=== PATIENT | female | born 1925 | race Caucasian/White ===

== ENCOUNTER 2016-04-18 06:20 | Emergency (ER) | payer MEDICARE, OTHER ==
[~2016-04-18] VITALS: Ht 160 cm; Wt 70.0 kg
[~2016-04-18 06:20] MED LIST: CELE100C PO; DONE5TAB14 PO; LISI-363 PO; OMPR20CCR PO; ONDA1TAB16 PO; PREV30CA36 PO; SERT100 PO
--- NOTE | 2016-04-18 06:45 | PD ---
HPI Chief Complaint: Fall Time Seen by Provider: 06:43 Travel History International Travel<30 days: No Contact w/Intl Traveler<30days: No Traveled to known affect area: No History of Present Illness HPI 89-year-old female presents to the emergency department by EMS transport from [facility] after a slip and fall this morning. Patient reports that she did hit her forehead. She doesn't think that she lost consciousness. Patient sustained contusion. Patient reports also hit her left elbow. Patient denies any extremity pain and has full range of motion of the left lower extremity. Patient denies other injury. Patient states she did not have loss of consciousness. Patient denies any chest pain shortness of breath abdominal pain back pain pelvic pain or other extremity pain. PFSH Past Medical History Narrative Medical Dementia arthritis anxiety depression breast cancer dyslipidemia aortic regurgitation fibromyalgia recurrent urinary tract infections lumbar stenosis occasional wine no tobacco use hypertension Alzheimer's Disease: Yes Arthritis: Yes Blood Disorders: No Anxiety: Yes Depression: Yes Heart Rhythm Problems: Yes Cancer: No Cardiovascular Problems: Yes (AORTIC REGURGITATION) High Cholesterol: Yes Dementia: Yes Diminished Hearing: Yes Endocrine: No Fibromyalgia: Yes Gastrointestinal Disorders: Yes GERD: Yes Genitourinary: Yes (URINARY INCONTINENCE) Hypertension: Yes Immune Disorder: No Musculoskeletal: Yes (FIBROMYALGIA; LUMBAR SPINAL STENOSIS) Neurologic: No Psychiatric: Yes Respiratory: No Immunizations Current: Yes Menopausal: Yes Dilation and Curettage (D&C): Yes Past Surgical History Gynecologic Surgery: Yes (D&C'S) Other Surgery: Yes (TOOTH EXTRACTION) Social History Alcohol Use: Yes (OCCASIONALLY WINE ) Tobacco Use: No Substance Use: No Allergies-Medications (Allergen,Severity, Reaction): Coded Allergies: Aspirin (Verified Allergy, Severe, ABDOMINAL PAAIN/NAUSEA, 04/18/16) Sulfa (Verified Allergy, Severe, BLEEDING, 04/18/16) Reported Meds & Prescriptions Reported Meds & Active Scripts Active Reported Ativan (Lorazepam) 1 Mg Tab 1 Mg PO Q6HR PRN Buspirone (Buspirone HCl) 10 Mg Tab 10 Mg PO TID Memantine 10 Mg Tab 10 Mg PO BID Sertraline (Sertraline HCl) 100 Mg Tab 50 Mg PO DAILY Melatonin 5 Mg Tab 5 Mg PO HS Lisinopril 2.5 Mg Tab 2.5 Mg PO DAILY Hydrocodone-Acetaminophen 10-325 mg Tab 1 Tab PO HS PRN Hydrocodone-Acetaminophen 5-325 mg Tab 1 Tab PO Q4H PRN Donepezil 10 Mg Tab 10 Mg PO DAILY Ditropan XL 24 HR (Oxybutynin Chloride) 5 Mg Tab 5 Mg PO DAILY Vitamin D (Cholecalciferol) 1,000 Unit Tab 500 Units PO DAILY Review of Systems ROS Limitations: Clinical Condition, Poor Historian General / Constitutional: No: Fever HENT: Positive: Headaches, Neck Pain Cardiovascular: No: Chest Pain or Discomfort Respiratory: No: Shortness of Breath Gastrointestinal: No: Abdominal Pain Genitourinary: No: Flank Pain Musculoskeletal: Positive: Pain (left elbow) Neurologic: Positive: Headache Physical Exam Narrative GENERAL: Well-developed elderly female in no acute distress no respiratory distress awake and oriented to person and events and location. SKIN: Warm and dry. HEAD: Atraumatic. Normocephalic. Right forehead contusion with abrasion subacute left forehead contusion with abrasion no palpable scalp soft tissue swelling hematoma laceration or bony abnormalities. EYES: Pupils equal and round. Extraocular muscles intact. No scleral icterus. No injection or drainage. ENT: No nasal bleeding or discharge. Mucous membranes pink and moist. Airway is patent. No hemotympanum bilaterally. NECK: Trachea midline. No JVD. No bony tenderness to palpation along the cervical spine but does note tenderness to palpation along the left paracervical musculature. Cervical collar applied CARDIOVASCULAR: Regular rate and rhythm. RESPIRATORY: No accessory muscle use. Clear to auscultation. Breath sounds equal bilaterally. GASTROINTESTINAL: Abdomen soft, non-tender, nondistended. Hepatic and splenic margins not palpable. MUSCULOSKELETAL: Extremities without clubbing, cyanosis, or edema. No obvious deformities. Multiple various aged ecchymosis over the bilateral upper extremities attention to left elbow forearm positive intact ecchymotic area patient demonstrates full range of motion with flexion extension and pronation supination farm supervisor strength 5 over 5 capillary refill brisk less than 2 seconds per digit radial pulse 2+ to palpation no deformity noted. NEUROLOGICAL: Awake and alert. No obvious cranial nerve deficits. Motor grossly within normal limits. Five out of 5 muscle strength in the arms and legs. Normal speech. PSYCHIATRIC: Appropriate mood and affect; insight and judgment normal. Data Data Last Documented VS Vital Signs Date Time Temp Pulse Resp B/P Pulse Ox O2 Delivery O2 Flow Rate FiO2 04/18/16 08:16 59 18 180/72 99 Room Air 04/18/16 08:[address] Brain W/O Iv Contrast(Rout) (04/18/16 ) Ct Cerv Spine W/O Contrast (04/18/16 ) Apply Cervical Collar (04/18/16 06:43) MDM Medical Decision Making Medical Screen Exam Complete: Yes Emergency Medical Condition: Yes Medical Record Reviewed: Yes Differential Diagnosis Mechanical fall, minor CHI, ICH, skull fracture, cervical spine sprain strain fracture cord compression, contusions Narrative Course Patient with recent fall and head contusion patient aware that she had a trip and fall and hit her head does not believe she had loss of consciousness and complains of neck pain cervical collar applied no other focality on exam identified patient is not sure if she takes any blood thinning agents. CT brain noncontrast and CT cervical spine noncontrast imaging studies ordered. At 8:25 AM patient's care signed over to oncoming physician for follow-up of pending imaging studies and patient disposition Medical record review identifies patient was seen for fall with minor head injury 04/14/16 CT brain noncontrast at that time was found to reveal no acute abnormality. Corrina Byrd MD Apr 18, 2016 06:45
[2016-04-18 08:11] VITALS: BP 181/77; PULSE 65; RESP 20; TEMP 97.8; O2SAT 100
[2016-04-18 08:16] VITALS: BP 180/72; PULSE 59; RESP 18; O2SAT 99
--- NOTE | 2016-04-18 08:42 | RADRPT ---
EXAM DATE/TIME: 04/18/2016 08:20 [facility] COMPARISON: CT BRAIN W/O CONTRAST, October 18, 2010, 20:56. CT BRAIN W/O CONTRAST, April 14, 2016, 21:12. INDICATIONS : Trauma. Fell and hit head. RADIATION DOSE: 56.35 CTDIvol (mGy) MEDICAL HISTORY : Hypertension. SURGICAL HISTORY : None. ENCOUNTER: Initial ACUITY: 1 day PAIN SCALE: 4/10 LOCATION: cranial TECHNIQUE: Multiple contiguous axial images were obtained of the head. Using automated exposure control and adj ustment of the mA and/or kV according to patient size, radiation dose was kept as low as reasonably a chievable to obtain optimal diagnostic quality images. FINDINGS: CEREBRUM: The ventricles are normal for age. No evidence of midline shift, mass lesion, hemorrhage or acute in farction. No extra-axial fluid collections are seen. POSTERIOR FOSSA: The cerebellum and brainstem are intact. The 4th ventricle is midline. The cerebellopontine angle i s unremarkable. EXTRACRANIAL: The visualized portion of the orbits is intact. SKULL: The calvaria is intact. No evidence of skull fracture. There is a small area of swelling along the r ight frontal region. CONCLUSION: 1. No acute intracranial abnormality is identified. The exam is stable compared to previous dated . Mart Yeager MD on April 18, 2016 at 8:38 Board Certified Radiologist. This report was verified electronically.
[2016-04-18] MEDS ORDERED: HYDR-3516 PO (09:03)
[2016-04-18] MEDS ORDERED: SERT-129 PO (09:03)
[2016-04-18] MEDS ORDERED: MELA5TAB15 PO (09:03)
[2016-04-18] MEDS ORDERED: OXYBXL5 PO (09:03)
[2016-04-18] MEDS ORDERED: HYDR-3583 PO (09:03)
[2016-04-18] MEDS ORDERED: MEMA1TAB2 PO (09:03)
[2016-04-18] MEDS ORDERED: DONE10TA7 PO (09:03)
[2016-04-18] MEDS ORDERED: LISI2.5T3 PO (09:03)
[2016-04-18] MEDS ORDERED: BUSP10TA PO (09:03)
[2016-04-18] MEDS ORDERED: VITA100064 PO (09:03)
[2016-04-18] MEDS ORDERED: LORA-474 PO (09:03)
--- NOTE | 2016-04-18 09:10 | RADRPT ---
EXAM DATE/TIME: 04/18/2016 08:20 [facility] COMPARISON: No previous studies available for comparison. INDICATIONS : Trauma. Fell and hit head. RADIATION DOSE: 33.07 CTDIvol (mGy) MEDICAL HISTORY : Hypertension. SURGICAL HISTORY : None. ENCOUNTER: Initial ACUITY: 1 day PAIN SCALE: 2/10 LOCATION: neck TECHNIQUE: Volumetric scanning of the cervical spine was performed. Multiplanar reconstructions in the sagittal, coronal and oblique axial planes were performed. Using automated exposure control and adjustment o f the mA and/or kV according to patient size, radiation dose was kept as low as reasonably achievable to obtain optimal diagnostic quality images. FINDINGS: There is no fracture or spondylolisthesis. No prevertebral soft tissue swelling. Moderate to severe d egenerative disc disease present at C5-6. No significant canal stenosis. CONCLUSION: 1. No acute findings. 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 Facet arthropathy. Michael Smart MD on April 18, 2016 at 9:02 Board Certified Radiologist. This report was verified electronically.
[2016-04-18 10:49] VITALS: BP 198/93; PULSE 72; RESP 20; O2SAT 96
--- NOTE | 2016-04-18 10:57 | PD ---
Data Data Last Documented VS Vital Signs Date Time Temp Pulse Resp B/P Pulse Ox O2 Delivery O2 Flow Rate FiO2 04/18/16 10:49 72 20 198/93 96 Room Air 04/18/16 08:[address] Brain W/O Iv Contrast(Rout) (04/18/16 ) Ct Cerv Spine W/O Contrast (04/18/16 ) Apply Cervical Collar (04/18/16 06:43) Collar [place] (04/18/16 ) MDM Supervised Visit with LAUREEN: No Narrative Course This case is checked out to me by Dr. Byrd. She is a demented half-way patient that had a fall with head injury. Brain CT is negative. Cervical spine CT is negative for trauma. Patient will be sent back to the half-way to follow-up with half-way physician. Diagnosis Primary Impression: Head injury due to trauma Qualified Code: S09.90XA - Head injury due to trauma, initial encounter Additional Impression: Dementia Qualified Code: G30.9 - Alzheimer's dementia without behavioral disturbance, unspecified timing of dementia onset Additional Instruction: Follow-up with half-way Sriram Disposition: 03 DISCHARGE TO SNF Condition: Stable Diego Rivera MD Apr 18, 2016 10:57
== END 2016-04-18 12:52 ==
LOC: NEPC 06:20
DX: S00.93XA Contusion of unspecified part of head, initial encounter (principal); G30.9 Alzheimer's disease, unspecified; F02.80 Dementia in other diseases classified elsewhere, unspecified severity, without behavioral disturbance, psychotic disturbance, mood disturbance, and anxiety; W01.0XXA Fall on same level from slipping, tripping and stumbling without subsequent striking against object, initial encounter; Y92.129 Unspecified place in nursing home as the place of occurrence of the external cause
CPT/HCPCS: 70450; 72125; 99285; L0150

== ENCOUNTER 2017-10-04 18:15 | Emergency (ER) | payer MEDICARE, OTHER ==
[~2017-10-04] VITALS: Ht 160 cm; Wt 70.0 kg
[~2017-10-04 18:15] MED LIST changes: +BUSP10TA PO; -CELE100C PO; +DONE10TA7 PO; -DONE5TAB14 PO; +HYDR-3516 PO; +HYDR-3583 PO; -LISI-363 PO; +LISI2.5T3 PO; +LORA-474 PO; +MELA5 PO; +MEMA1TAB2 PO; -OMPR20CCR PO; -ONDA1TAB16 PO; +OXYBXL5 PO; -PREV30CA36 PO; +SERT-129 PO; -SERT100 PO; +VITA100064 PO
[2017-10-04 18:19] VITALS: BP 198/118; PULSE 87; RESP 16; TEMP 97.7; O2SAT 92; O2SAT 97
--- NOTE | 2017-10-04 18:32 | PD ---
Physical Exam Date Seen by Provider: Oct 04, 2017 Narrative This is a demented patient who lives in a retirement who presents to us for the evaluation of a left hip injury. She had a fall just prior to presentation. Her left leg is shortened. Data Data Last Documented VS Vital Signs Date Time Temp Pulse Resp B/P (MAP) Pulse Ox O2 Delivery O2 Flow Rate FiO2 10/04/17 18:22 77 16 92 Nasal Cannula 2.00 10/04/17 18:19 97.7 198/118 (144) Orders Orders Electrocardiogram (10/04/17 18:23) Complete Blood Count With Diff (10/04/17 18:23) Comprehensive Metabolic Panel (10/04/17 18:23) Prothrombin Time / Inr (Pt) (10/04/17 18:23) Act Partial Throm Time (Ptt) (10/04/17 18:23) Urinalysis - C+S If Indicated (10/04/17 18:23) Magnesium (Mg) (10/04/17 18:23) Chest, Single Ap (10/04/17 18:23) Ct Brain W/O Iv Contrast(Rout) (10/04/17 18:23) Iv Access Insert/Monitor (10/04/17 18:23) Hip, Uni(Ap&Lat) W Ap Pelvis (10/04/17 ) Femur (Ap & Lat/2vws) (10/04/17 ) MDM Supervised Visit with LAUREEN: Yes Narrative Course I, Dr. Mckeon, have reviewed the advance practice practitioner's documentation and am in agreement, met with the patient face to face, made the diagnosis, and the medical decision making was done by me. *My assessment and Findings: She has a probable left hip fracture. See Leah Lopez note for a more detailed H&P, final diagnosis and disposition Lisa Mckeon MD Oct 04, 2017 18:32
[2017-10-04 19:00] VITALS: BP 189/114; PULSE 88; RESP 16; O2SAT 96
[2017-10-04] MEDS ORDERED: HYDROmorphone HCL PF 1 MG/ML VIAL IV PUSH ONE (19:00)
--- NOTE | 2017-10-04 19:08 | PD ---
HPI Chief Complaint: Fall Time Seen by Provider: 18:18 Travel History International Travel<30 days: No Contact w/Intl Traveler<30days: No Traveled to known affect area: No History of Present Illness HPI 89-year-old female that presents to the ED for evaluation of fall. Patient had a fall today at an [facility]. Patient is somewhat of a poor historian and she has a history of dementia. Per [facility] report patient apparently had a fall today. She is alert and oriented to person and place but not to time. She apparently fell and did hit her head and had a injury to her left hip. She has obvious shortening on the left hip. She is been complaining of severe pain to the left hip. She does have a history of what appears to be breast cancer on the right breast per ED nurse report and apparently she also is a DNR patient and currently on hospice. Has multiple allergies to different medications. Denies any chest pain or shortness of breath. No arm pain. She chronically takes morphine and patient was given 10 mg of morphine IV on the way here per Dr. Mckeon orders to [facility]. No open sores per [facility]. Pain apparently still 10 out of 10. Only on the left hip. She does have shortening. History is limited because of the patient's mental status. No family or hospice at bedside. PFSH Past Medical History Alzheimer's Disease: Yes Arthritis: Yes Blood Disorders: No Anxiety: Yes Depression: Yes Heart Rhythm Problems: Yes Cancer: No Cardiovascular Problems: Yes High Cholesterol: Yes Dementia: Yes Diabetes: No Diminished Hearing: Yes Endocrine: No Fibromyalgia: Yes Gastrointestinal Disorders: Yes GERD: Yes Genitourinary: Yes (URINARY INCONTINENCE) Hypertension: Yes Immune Disorder: No Musculoskeletal: Yes (FIBROMYALGIA; LUMBAR SPINAL STENOSIS) Neurologic: No Psychiatric: Yes Respiratory: No Immunizations Current: Yes Tetanus Vaccination: > 5 Years Influenza Vaccination: No Menopausal: Yes Dilation and Curettage (D&C): Yes Past Surgical History Gynecologic Surgery: Yes (D&C'S) Other Surgery: Yes (TOOTH EXTRACTION) Social History Alcohol Use: No Tobacco Use: No Substance Use: No Allergies-Medications (Allergen,Severity, Reaction): Coded Allergies: Sulfa (Sulfonamide Antibiotics) (Unverified Allergy, Severe, BLEEDING, ) aspirin (Unverified Allergy, Severe, ABDOMINAL PAAIN/NAUSEA, 10/04/17) Etltrzm-Vsg-Ocs Reductase Inhibitor (Verified Allergy, Intermediate, ) ezetimibe (Verified Allergy, Intermediate, 10/04/17) Reported Meds & Prescriptions Reported Meds & Active Scripts Active Reported Ativan (Lorazepam) 1 Mg Tab 1 Mg PO Q6HR PRN Buspirone (Buspirone HCl) 10 Mg Tab 10 Mg PO TID Memantine 10 Mg Tab 10 Mg PO BID Sertraline (Sertraline HCl) 100 Mg Tab 50 Mg PO DAILY Melatonin 5 Mg Tab 5 Mg PO HS Lisinopril 2.5 Mg Tab 2.5 Mg PO DAILY Hydrocodone-Acetaminophen 10-325 mg Tab 1 Tab PO HS PRN Hydrocodone-Acetaminophen 5-325 mg Tab 1 Tab PO Q4H PRN Donepezil 10 Mg Tab 10 Mg PO DAILY Ditropan XL 24 HR (Oxybutynin Chloride) 5 Mg Tab 5 Mg PO DAILY Vitamin D (Cholecalciferol) 1,000 Unit Tab 500 Units PO DAILY Review of Systems Except as stated in HPI: all other systems reviewed are Neg Physical Exam Narrative GENERAL: SKIN: Warm and dry. HEAD: Atraumatic. Normocephalic. EYES: Pupils equal and round 4 mms reactive to light and accommodation. No scleral icterus. No injection or drainage. ENT: No nasal bleeding or discharge. Mucous membranes pink and moist. Tongue is midline. No uvula deviation. NECK: Trachea midline. No JVD. CARDIOVASCULAR: Regular rate and rhythm. No murmurs, S3, S4. RESPIRATORY: No accessory muscle use. Clear to auscultation. Breath sounds equal bilaterally. GASTROINTESTINAL: Abdomen soft, non-tender, nondistended. Hepatic and splenic margins not palpable. MUSCULOSKELETAL: Extremities without clubbing, cyanosis, or edema. No obvious deformities. Full range of motion of the upper and the right lower extremity. Patient does have obvious deformity and shortening of the left lower extremity around the area of the hip. Any range of motion of the hip causes significant pain. 2+ pulses bilaterally. Sensation intact bilaterally. NEUROLOGICAL: Awake and alert. No obvious cranial nerve deficits. Motor grossly within normal limits. Five out of 5 muscle strength in the arms and legs. Normal speech. PSYCHIATRIC: Appropriate mood and affect; insight and judgment normal. Data Data Last Documented VS Vital Signs Date Time Temp Pulse Resp B/P (MAP) Pulse Ox O2 Delivery O2 Flow Rate FiO2 10/04/17 18:22 77 16 92 Nasal Cannula 2.00 10/04/17 18:19 97.7 198/118 (144) Orders Orders Electrocardiogram (10/04/17 18:23) Complete Blood Count With Diff (10/04/17 18:23) Comprehensive Metabolic Panel (10/04/17 18:23) Prothrombin Time / Inr (Pt) (10/04/17 18:23) Act Partial Throm Time (Ptt) (10/04/17 18:23) Urinalysis - C+S If Indicated (10/04/17 18:23) Magnesium (Mg) (10/04/17 18:23) Chest, Single Ap (10/04/17 18:23) Ct Brain W/O Iv Contrast(Rout) (10/04/17 18:23) Iv Access Insert/Monitor (10/04/17 18:23) Hip, Uni(Ap&Lat) W Ap Pelvis (10/04/17 ) Femur (Ap & Lat/2vws) (10/04/17 ) Hydromorphone Pf Inj (Dilaudid Pf Inj) (10/04/17 20:00) Labs Laboratory Tests Test 10/04/17 18:45 White Blood Count 11.6 TH/MM3 Red Blood Count 4.42 MIL/MM3 Hemoglobin 14.1 GM/DL Hematocrit 43.6 % Mean Corpuscular Volume 98.7 FL Mean Corpuscular Hemoglobin 32.0 PG Mean Corpuscular Hemoglobin Concent 32.4 % Red Cell Distribution Width 15.8 % Platelet Count 232 TH/MM3 Mean Platelet Volume 10.0 FL Neutrophils (%) (Auto) 67.6 % Lymphocytes (%) (Auto) 22.9 % Monocytes (%) (Auto) 5.6 % Eosinophils (%) (Auto) 3.1 % Basophils (%) (Auto) 0.8 % Neutrophils # (Auto) 7.9 TH/MM3 Lymphocytes # (Auto) 2.7 TH/MM3 Monocytes # (Auto) 0.6 TH/MM3 Eosinophils # (Auto) 0.4 TH/MM3 Basophils # (Auto) 0.1 TH/MM3 CBC Comment DIFF FINAL Differential Comment Prothrombin Time 12.3 SEC Prothromb Time International Ratio 1.2 RATIO Activated Partial Thromboplast Time 27.1 SEC Blood Urea Nitrogen 27 MG/DL Creatinine 1.13 MG/DL Random Glucose 104 MG/DL Total Protein 7.7 GM/DL Albumin 3.4 GM/DL Calcium Level 9.2 MG/DL Magnesium Level 2.6 MG/DL Alkaline Phosphatase 74 U/L Aspartate Amino Transf (AST/SGOT) 19 U/L Alanine Aminotransferase (ALT/SGPT) 21 U/L Total Bilirubin 0.3 MG/DL Sodium Level 141 MEQ/L Potassium Level 4.1 MEQ/L Chloride Level 106 MEQ/L Carbon Dioxide Level 25.7 MEQ/L Anion Gap 9 MEQ/L Estimat Glomerular Filtration Rate 45 ML/MIN MDM Medical Decision Making Medical Screen Exam Complete: Yes Emergency Medical Condition: Yes Medical Record Reviewed: Yes Interpretation(s) CBC & BMP Diagram 10/04/17 18:45 Total Protein 7.7, Albumin 3.4, Calcium Level 9.2, Magnesium Level 2.6 H, Alkaline Phosphatase 74, Aspartate Amino Transf (AST/SGOT) 19, Alanine Aminotransferase (ALT/SGPT) 21, Total Bilirubin 0.[address] 10/04/17 1823 Signed Impressions: CONCLUSION: 1. No acute intracranial abnormality. 2. Atrophy and chronic small vessel ischemic change. Chest X-Ray 10/04/17 1823 Signed Impressions: CONCLUSION: 1. Left lower lobe consolidation with suspected tiny left effusion. 2. Myocardial megaly. Hip and Pelvis X-Ray 10/04/17 0000 Signed Impressions: CONCLUSION: Acute left hip fracture as detailed above. Femur X-Ray 10/04/17 0000 Signed Impressions: CONCLUSION: Left hip fracture. Remaining femur is intact. Differential Diagnosis Fracture versus bruise versus contusion versus head injury versus fall Narrative Course 89-year-old female that presents to the ED for evaluation of injury to her left hip. Patient was properly examined and was found to have signs and symptoms consistent with appears to be fracture. My attending Dr. Gold's evaluated the patient with me and agrees with plan. Labs and imaging order. We found out after her labs and imaging data patient apparently is DNR and hospice patient. We will have to speak with hospice to see whether patient can go back to [facility] or not. Labs and imaging did show what appears to be left hip fracture. Because the patient is DNR and hospice status as well as her multiple comorbidities unfortunately patient is not a good candidate for surgery per my attending Dr Morel who evaluated the patient. At this time will treat with pain management. [facility] hospice nurse came here and evaluated the patient and agree with discharge to a hospice facility so she can get more treatment of her pain. She will be discharged to her facility. Patient agrees with this. Power of estate attorney was made aware of this by [facility] hospice nurse who agree with patient's placement. Diagnosis Primary Impression: Hip fracture, left Qualified Codes: S72.002A - Fracture of unspecified part of neck of left femur , initial encounter for closed fracture Patient Instructions: General Instructions, Narcotic given in the ED Med/Other Pt SpecificInfo: No Change to Meds Disposition: 51 HOSPICE/MED FACILITY Condition: Stable Milton Cooper Oct 04, 2017 19:08
[2017-10-04 19:24] LABS: AUTOMATED NEUTROPHIL # 7.9 TH/MM3 (1.8-7.7); BASOPHIL # 0.1 TH/MM3 (0-0.2); BASOPHIL % 0.8 % (0.0-2.0); EOSINOPHIL # 0.4 TH/MM3 (0-0.4); EOSINOPHIL % 3.1 % (0.0-4.0); HEMATOCRIT 43.6 % (35.0-46.0); HEMOGLOBIN 14.1 GM/DL (11.6-15.3); LYMPH % 22.9 % (9.0-44.0); LYMPHOCYTE # 2.7 TH/MM3 (1.0-4.8); MEAN CELL VOLUME 98.7 FL (80.0-100.0); MEAN CORPUSCULAR HGB CONC 32.4 % (32.0-36.0); MONO % 5.6 % (0.0-8.0); MONOCYTE # 0.6 TH/MM3 (0-0.9); NEUT % 67.6 % (16.0-70.0); PLATELET COUNT 232 TH/MM3 (150-450); RED BLOOD COUNT 4.42 MIL/MM3 (4.00-5.30); RED CELL DISTRIBUTION WIDTH 15.8 % (11.6-17.2); WHITE BLOOD COUNT 11.6 TH/MM3 (4.0-11.0)
--- NOTE | 2017-10-04 19:27 | RADRPT ---
EXAM DATE: 10/04/2017 7:23 PM EDT AGE/SEX: 89 years / Female INDICATIONS: Trauma; fall today. CLINICAL DATA: This is the patient's initial encounter. Patient reports that signs and symptoms have been present for 1 day and indicates a pain score of 10/10. MEDICAL/SURGICAL HISTORY: Cardiovascular disease. Hypertension. Parkinson's disease, Alzheimers N one. RADIATION DOSE: 36.49 CTDI (mGy) COMPARISON: CT brain 04/18/2016. TECHNIQUE: CT of the head without contrast. Using automated exposure control and adjustment of the mA and/or kV according to patient size, radiation dose was kept as low as reasonably achievable to ob tain optimal diagnostic quality images. DICOM format image data is available electronically for revi ew and comparison. FINDINGS: Cerebrum: Atrophy. Periventricular low attenuation change involving both cerebral hemispheres. Appea tangela is stable from the prior study. The ventricles are normal for age. No evidence of midline shif t, mass lesion, hemorrhage or acute infarction. No extraaxial fluid collections are seen. Posterior Fossa: The cerebellum and brainstem are intact. The 4th ventricle is midline. The cerebe llopontine angle is unremarkable. Extracranial: The visualized portion of the orbits is intact. Skull: The calvaria is intact. No evidence of skull fracture. CONCLUSION: 1. No acute intracranial abnormality. 2. Atrophy and chronic small vessel ischemic change. Electronically signed by: Rome Palacios MD 10/04/2017 7:26 PM EDT
--- NOTE | 2017-10-04 19:28 | RADRPT ---
EXAM DATE: 10/04/2017 7:24 PM EDT AGE/SEX: 89 years / Female INDICATIONS: Shortness of breath post fall today. CLINICAL DATA: This is the patient's initial encounter. Patient reports that signs and symptoms have been present for 1 day and indicates a pain score of 0/10. MEDICAL/SURGICAL HISTORY: Hypertension. None. COMPARISON: None. FINDINGS: A single portable frontal view the chest shows mild cardiomegaly. Retrocardiac opacity obscures the l eft hemidiaphragm. Tiny left effusion suspected. Eventration of the right hemidiaphragm. Bony structu res are intact. No pneumothorax. CONCLUSION: 1. Left lower lobe consolidation with suspected tiny left effusion. 2. Myocardial megaly. Electronically signed by: Rome Palacios MD 10/04/2017 7:27 PM EDT
--- NOTE | 2017-10-04 19:33 | RADRPT ---
EXAM DATE: 10/04/2017 7:27 PM EDT AGE/SEX: 89 years / Female INDICATIONS: Left hip pain after falling today. CLINICAL DATA: This is the patient's initial encounter. Patient reports that signs and symptoms have been present for 1 day and indicates a pain score of 10/10. MEDICAL/SURGICAL HISTORY: Hypertension. . Right hip pinning. COMPARISON: None. FINDINGS: 3 views of the left hip reveal an acute subcapital femoral neck fracture. There is proximal retractio n of the distal fracture fragment relative to the femoral head. Femoral head remains in contact with the acetabulum. The remaining pelvis is intact. Osteopenia noted. 3 femoral neck screws on the right. Atherosclerotic calcifications noted. CONCLUSION: Acute left hip fracture as detailed above. Electronically signed by: Rome Palacios MD 10/04/2017 7:32 PM EDT
--- NOTE | 2017-10-04 19:35 | RADRPT ---
EXAM DATE: 10/04/2017 7:31 PM EDT AGE/SEX: 89 years / Female INDICATIONS: Left hip pain after falling today. CLINICAL DATA: This is the patient's initial encounter. Patient reports that signs and symptoms have been present for 1 day and indicates a pain score of 10/10. MEDICAL/SURGICAL HISTORY: Hypertension. None. COMPARISON: Left hip x-ray 10/04/2017. FINDINGS: See the left hip x-ray regarding the left hip fracture. Bony structures are intact and in normal alig nment. Osseous density is normal. Soft tissues are unremarkable. No radiopaque foreign bodies seen. Atherosclerotic calcifications noted. CONCLUSION: Left hip fracture. Remaining femur is intact. Electronically signed by: Rome Palacios MD 10/04/2017 7:34 PM EDT
[2017-10-04 19:43] LABS: ALBUMIN 3.4 GM/DL (3.4-5.0); AST (GOT) 19 U/L (15-37); BICARBONATE 25.7 MEQ/L (21.0-32.0); BLOOD UREA NITROGEN 27 MG/DL (7-18); CALCIUM 9.2 MG/DL (8.5-10.1); CHLORIDE 106 MEQ/L (98-107); CREATININE 1.13 MG/DL (0.50-1.00); GLOMERULAR FILTRATION RATE 45 ML/MIN (>89); GLUCOSE,RANDOM 104 MG/DL (74-106); MAGNESIUM 2.6 MG/DL (1.5-2.5); SODIUM (NA) 141 MEQ/L (136-145)
[2017-10-04 19:44] LABS: ALT (GPT) 21 U/L (10-53)
[2017-10-04 19:47] LABS: ALKALINE PHOSPHATASE 74 U/L (45-117); TOTAL BILIRUBIN ADULT 0.3 MG/DL (0.2-1.0); TOTAL PROTEIN 7.7 GM/DL (6.4-8.2)
[2017-10-04 19:57] LABS: INTERNATIONAL NORMALIZED RATIO 1.2 RATIO; PROTHROMBIN TIME - PATIENT 12.3 SEC (9.8-11.6)
[2017-10-04] MEDS ORDERED: HYDROmorphone HCL PF 2 MG/ML VIAL IV PUSH ONE (20:00)
--- NOTE | 2017-10-05 12:37 | EKG ---
Date Performed: 10/04/2017 Time Performed: 19:51:45 PTAGE: 89 years EKG: Normal Sinus rhythm with occassional PVCs MODERATE INTRAVENTRICULAR CONDUCTION DELAY ST DEVIATION AND MODERATE T-WAVE AB NORMALITY, CONSIDER LATERAL ISCHEMIA ABNORMAL ECG PREVIOUS TRACING : 07/15/2013 04.23 Compared to prior study, nonspecific ST-T changes are now p resent. DOCTOR: Venkata Hernandez Interpretating Date/Time 10/05/2017 12:36:04
== END 2017-10-04 22:47 | disposition hospice, inpatient (51) ==
LOC: NEPE 18:15
DX: S72.002A Fracture of unspecified part of neck of left femur, initial encounter for closed fracture (principal); F03.90 Unspecified dementia, unspecified severity, without behavioral disturbance, psychotic disturbance, mood disturbance, and anxiety; G30.9 Alzheimer's disease, unspecified; F02.80 Dementia in other diseases classified elsewhere, unspecified severity, without behavioral disturbance, psychotic disturbance, mood disturbance, and anxiety; M19.90 Unspecified osteoarthritis, unspecified site; F41.9 Anxiety disorder, unspecified; F32.9 Major depressive disorder, single episode, unspecified; E78.00 Pure hypercholesterolemia, unspecified; M79.7 Fibromyalgia; K21.9 Gastro-esophageal reflux disease without esophagitis; I10 Essential (primary) hypertension; R94.31 Abnormal electrocardiogram [ECG] [EKG]; Z79.899 Other long term (current) drug therapy; Z88.2 Allergy status to sulfonamides; Z88.6 Allergy status to analgesic agent; Z88.8 Allergy status to other drugs, medicaments and biological substances; W18.30XA Fall on same level, unspecified, initial encounter
CPT/HCPCS: 70450; 71045; 73502; 73552; 80053; 83735; 85025; 85610; 85730; 93005; 96374; 99285; J1170